=== PATIENT | male | born 1940 | race Caucasian/White ===

== ENCOUNTER 2016-09-19 15:42 | Outpatient (CLI) | payer MEDICARE | END 2016-09-19 15:43 | disposition home or self-care (01) | LOC: NC 15:42 | PROVIDERS: ATTEND Family Medicine | DX: E11.9 Type 2 diabetes mellitus without complications (principal); G20 Parkinson's disease; Z71.3 Dietary counseling and surveillance; Z68.23 Body mass index [BMI] 23.0-23.9, adult ==

== ENCOUNTER 2016-09-25 16:12 | Outpatient (CLI) | payer MEDICARE | END 2016-09-25 16:13 | disposition home or self-care (01) | LOC: NC 16:12 | PROVIDERS: ATTEND Family Medicine | DX: E11.9 Type 2 diabetes mellitus without complications (principal); Z71.3 Dietary counseling and surveillance; Z79.4 Long term (current) use of insulin ==

== ENCOUNTER 2016-10-09 21:49 | Observation (INO) | payer MEDICARE ==
[2016-10-09 22:08] LABS: BASO # 0.1 K/mm3 (0.0-0.2); BASO % 0.6 % (0.2-1.0); HEMOGLOBIN 11.6 gm/l (14.0-18.0); MEAN CELL VOLUME 99.7 fl (80.0-94.0); MEAN PLATELET VOLUME 8.7 fl (7.4-10.4)
[2016-10-09 22:13] LABS: ABSOLUTE NEUTROPHIL COUNT 3.8 K/mm3 (1.8-7.7); EOS # 1.8 (0.0-0.5); EOS % 22.8 % (0.9-2.9); IMM NEUT% 0.3 % (0-1); LYMPH # 1.6 (1.0-4.8); LYMPH % 21.1 % (15-45); MEAN CORPUSCULAR HGB CONC 34.1 g/dl (33.0-37.0); MONO # 0.5 (0.0-0.8); MONO % 6.8 % (4-12); NEUT % 48.4 % (43-75); PLATELET COUNT 383 K/mm3 (130-400); RED CELL DISTRIBUTION WIDTH 11.9 % (11.5-14.5)
[2016-10-09 22:48] LABS: ALB/GLOB RATIO 1.4 (>1.0); ALBUMIN 4.1 gm/dL (3.5-5.7); BLOOD UREA NITROGEN 34 mg/dL (7-25); BUN/CREATININE RATIO 31 (6-20); CALCIUM 9.4 mg/dL (8.6-10.3); GLOMERULAR FILTRATION RATE 66 mL/min (60-75)
[2016-10-09 22:56] LABS: ALT/SGPT < 5 U/L (7-52)
[2016-10-09 23:11] LABS: BAND 0 % (0-10); BASOPHIL 1 % (0-1); EOSINOPHIL 21 % (1-3); LYMPHOCYTE 31 % (15-45); MONOCYTE 6 % (4-12); NEUTROPHILS 41 % (43-75); TOTAL CELLS COUNTED 100
[2016-10-09 23:12] LABS: PLATELET ESTIMATE NORMAL (NORMAL)
[2016-10-09 23:51] LABS: URINE BILIRUBIN NEGATIVE (NEGATIVE); URINE BLOOD 4+ (NEGATIVE); URINE GLUCOSE (UA) 2+ (NEGATIVE); URINE LEUKOCYTE ESTERASE NEGATIVE (NEGATIVE); URINE NITRITE NEGATIVE (NEGATIVE); URINE PROTEIN 1+ (NEGATIVE); URINE UROBILINOGEN NORMAL (0-1 mg/dl)
[2016-10-09 23:57] LABS: URINE APPEARANCE HAZY; URINE COLOR DARK YELLOW
[2016-10-09 23:58] LABS: URINE BACTERIA 0; URINE EPITHELIAL CELLS FEW /hpf; URINE RBC >100 /hpf; URINE WBC 0-1 /hpf
[2016-10-10] MEDS ORDERED: MAGNESIUM HYDROXIDE 30 ML UDCUP PO PRN (00:39)
[2016-10-10] MEDS ORDERED: BISACODYL 5 MG TABLET.EC PO PRN (00:39)
[2016-10-10] MEDS ORDERED: BLISTEX LIPSTICK 1 EACH TP PRN (00:39)
[2016-10-10] MEDS ORDERED: SODIUM CHLORIDE 0.9% 100 ML IV PRN (00:39)
[2016-10-10] MEDS ORDERED: ACETAMINOPHEN 325 MG TABLET PO PRN (00:39)
[2016-10-10] MEDS ORDERED: BISACODYL 10 MG SUP PR PRN (00:39)
[2016-10-10] MEDS ORDERED: MENTHOL/CETYLPYRD 1 EACH LOZENGE PO PRN (00:39)
[2016-10-10 06:01] LABS: ABSOLUTE NEUTROPHIL COUNT 9.2 K/mm3 (1.8-7.7); BASO # 0.1 K/mm3 (0.0-0.2); BASO % 0.4 % (0.2-1.0); EOS # 0.5 (0.0-0.5); EOS % 4.4 % (0.9-2.9); HEMATOCRIT 31.6 % (32.0-52.0); HEMOGLOBIN 10.6 gm/l (14.0-18.0); IMM NEUT% 0.4 % (0-1); LYMPH # 0.7 (1.0-4.8); LYMPH % 6.2 % (15-45); MEAN CELL VOLUME 101.9 fl (80.0-94.0); MEAN CORPUSCULAR HEMOGLOBIN 34.2 pg (27.0-31.0); MEAN CORPUSCULAR HGB CONC 33.5 g/dl (33.0-37.0); MEAN PLATELET VOLUME 8.7 fl (7.4-10.4); MONO # 0.8 (0.0-0.8); MONO % 6.8 % (4-12); NEUT % 81.8 % (43-75); PLATELET COUNT 311 K/mm3 (130-400); RED CELL DISTRIBUTION WIDTH 11.9 % (11.5-14.5)
[2016-10-10 06:15] LABS: CALCIUM 8.6 mg/dL (8.6-10.3)
[2016-10-10] MEDS: INSULIN ASPART (DOSE) 100 UNITS/1 ML SUB-Q PRN ×4 (07:17→21:07)
[2016-10-10] MEDS: DOCUSATE SODIUM 100 MG CAPSULE PO SCH ×2 (08:27→21:07)
--- NOTE | 2016-10-10 08:36 | CT ---
Exam: CT head without contrast COMPARISON: None INDICATION: Fell backwards, hitting back of head. Altered level of consciousness. TECHNIQUE: CT examination of the head was obtained without contrast. FINDINGS: Deep brain stimulators are appreciated. This produces some beam hardening artifact which slightly limits evaluation. Nevertheless, there is no evidence of acute intracranial hemorrhage. There is a panhemispheric subdural collection on the left which has CSF density measuring 7 mm in width. This may reflect a hygroma/chronic subdural hematoma. Although there is no subjacent sulcal effacement, there is approximately 4 mm of [id number] midline shift. Cortical mckeon-white matter differentiation is maintained and there is no mass effect or midline shift. Ventricles are normal in size. There is mild global atrophy. There is no depressed skull fracture. The visualized paranasal sinuses and mastoid air cells are well aerated. IMPRESSION: 1. No acute intracranial abnormality. 2. Left subdural fluid collection, either reflecting a hygroma or chronic subdural hematoma resulting in approximately 4 mm of [id number] midline shift although no significant sulcal effacement is identified. 3. Deep brain stimulators. 4. Mild to moderate global atrophy. Preliminary report transmitted to the emergency department from [facility] at 2239 hours 10/10/2016.
--- NOTE | 2016-10-10 09:03 | CT ---
Exam: CT cervical spine without contrast COMPARISON: Radiograph 11/21/2013 INDICATION: Fall, hitting back of head TECHNIQUE: CT examination cervical spine was obtained without contrast. FINDINGS: Sagittal alignment has not significantly changed since the 2014 and radiographs. There is 2 mm of retrolisthesis of C3 on C4 and minor degenerative retrolisthesis of C5 on C6. Atlantoaxial and atlantooccipital relationships are maintained. There is no prevertebral soft tissue swelling. No acute fracture is identified. There is multilevel degenerative disc disease, most prominent at C5-6 where there is a prominent disc osteophyte complex eccentric to the left which is producing at least mild central spinal canal stenosis and asymmetric narrowing of the left lateral recess. There is also central spinal canal stenosis at C3-4 due to a large disc osteophyte complex and associated retrolisthesis. Central spinal canal stenosis to a lesser degree is also suggested at C6-7. There is multilevel neural foraminal narrowing, most prominent on the left at C5-6 and C6-7 due to uncovertebral osteophytes. Lung apices are clear. Paravertebral soft tissues unremarkable. IMPRESSION: No acute osseous abnormality in the cervical spine. Chronic changes as above, including multilevel central spinal canal stenosis and neural foraminal narrowing. Preliminary report transmitted to the emergency department from [facility] at 2239 hours 10/09/2016.
[2016-10-10] MEDS: CARBIDOPA/LEVODOPA 25/100 1 EACH TABLET PO SCH ×2 (14:48→21:07)
[2016-10-10] MEDS: AMANTADINE HCL 100 MG CAPSULE PO SCH ×2 (16:55→21:06)
--- NOTE | 2016-10-10 17:15 | HP ---
SINGH YOUSSEF [id number] CHIEF COMPLAINT: Fall, with head trauma. HISTORY OF PRESENT ILLNESS: The patient is a 75-year-old male with a past medical history significant for Parkinson's disease and diabetes who had neural implants placed at [facility] for his Parkinson's disease on 10/01/2016. He has been doing well postoperatively. His reports that yesterday he was very active. He was able to feed the chickens and he went for several walks, but after he ate dinner he went to the bathroom and sometime between 8:30 - 9:00 he had a fall and got wedged between the toilet and the wall. She heard the fall and was able to come to his aid immediately. It is unclear if he hit his head. There was no seizure activity. After the fall, however, he was nonverbal for a period of a number of hours. He was evaluated in the emergency department. He had a CT scan of his head. The images were reviewed by neurosurgery at [facility] and he was not felt to have any acute injury, however, he remained unsteady on his feet in the emergency department and there were concerns about ongoing risk of repeated falls, so he was referred to the Hospitalist Service for observation. He did regain his ability to speak, but was only answering questions with a single word while in the emergency department. He did have some hyperglycemia, but no significant electrolyte or laboratory abnormalities. REVIEW OF SYSTEMS: He is not really able to provide a good review of systems, but his reports that he has had no fevers or chills and no upper respiratory symptoms. No cough, dyspnea or wheezing. No complaints of chest pain, shortness of breath or palpitations. No edema. No nausea or vomiting. No headaches, fainting, blackouts or seizures. No abdominal pain. No diarrhea or constipation. He has had no urinary symptoms. PAST MEDICAL HISTORY: Significant for: 1. Adult-onset diabetes. He has been on insulin for many years. He has had the diabetes for about ten years. 2. He has had Parkinson's disease for over five years. 3. He has had some erectile dysfunction. 4. He has had some cervical disk disease. 5. He never had any cardiac problems or any chronic lung disease. 6. He has not had any recent hospitalizations, except for the surgical procedure at [facility]. PAST SURGICAL HISTORY: Significant for: 1. The neural implants done on 10/01/[address] Maki. 2. He did have a bilateral hernia repair in 1994. 3. No other surgeries. ALLERGIES: No known drug allergies. CURRENT MEDICATIONS: Consist of: 1. Lisinopril 10 mg daily. 2. Amantadine 100 mg four times daily. 3. Simvastatin 40 mg at bedtime. 4. Lispro insulin, using a correction scale before breakfast, lunch and dinner, but not at bedtime. 5. Lantus 16 units sub-Q at bedtime. 6. Metformin 1,000 mg twice daily. 7. Sinemet 25/100 two pills 3 times daily. FAMILY HISTORY: Significant for a familial tremor, but no history of Parkinson's. His mother had hypertension and a maternal grandmother had diabetes. SOCIAL HISTORY: He is a lifelong nonsmoker. He occasionally drinks alcohol. He is not using any assistive devices at home. He lives with his . His primary care provider is Dr. Slade. PHYSICAL EXAMINATION: VITAL SIGNS: Temperature 99.0. Pulse 95. Blood pressure 139/72. Respirations 20. Oxygen saturation is 97% on room air. His body mass index is 23.6 and weight is 72.6 kilograms. GENERAL: This is a well-developed and well-nourished male in no acute distress. HEENT: Pupils equal, round and reactive to light. Extraocular movements are intact. No oral lesions are present. NECK: Supple, without lymphadenopathy or thyromegaly. LUNGS: Clear to auscultation bilaterally. CARDIOVASCULAR: Reveals a regular rate and rhythm, without a murmur. ABDOMEN: Soft, nontender and nondistended, with positive bowel sounds. EXTREMITIES: Show no peripheral edema. SKIN: Warm and dry. His incisions over the scalp in the frontal area are healing well. There is no erythema, discharge or fluctuance. NEUROLOGIC: Significant for him being alert. He is not oriented to place or time. He is oriented to person. He thought the month was September and the year was 1916, but on reorientation he seems to be retaining this information correctly. He is not very loquacious, but does answer questions appropriately, and has been able to get out of bed to the bathroom with standby assist. DIAGNOSTIC IMAGING STUDIES: 1. Included a CT of the brain, which showed a possible left subdural fluid collection, either CSF or a subdural hematoma, measuring about 4 mm, with a left and right midline shift, without focal effacement. There is no acute intracranial abnormality. There are deep brain stimulators seen and mild to moderate atrophy. 2. A cervical spine CT shows some chronic degenerative changes, but no acute fractures or findings. LABORATORY STUDIES: Initially his CBC showed a white count of 7.8, hemoglobin 11.6 and platelet count of 383,000, with 41% neutrophils, 0% bands, 31% lymphocytes, 6% monocytes and 21% eosinophils. A follow-up CBC done today shows an eosinophil percentage of 4% and no left shift. White count is borderline at 11.2. Hemoglobin is down to 10.6, probably from IV fluids. Chemistry profile initially showed a sodium of 136, potassium 3.6, BUN of 34, creatinine 1.1 and glucose 208. On follow-up today his sodium is 131 and potassium 4.1, with a BUN of 30 and creatinine of 1.0. Glucose was 364. Urinalysis shows a specific gravity of 1.020. A catheterized specimen had 4+ blood and over 100 red cells per high-powered field, but 0-1 white cells and zero bacteria; suspect this is caused by catheter trauma. ASSESSMENT: 1. The patient has a ground-level fall, with some acute encephalopathy, unclear etiology. He does have an abnormal CT, possibly consistent with a subdural hematoma, possibly just a CSF collection. 2. He has Parkinson's disease, with some high-risk medications complicating the picture. 3. Adult-onset diabetes, with hyperglycemia. 4. Cervical disk disease. PLAN: He is placed under observation initially. I will review his InterQual criteria to see if he meets criteria for admission. I do anticipate he will be staying another night and anticipate continuing neuro checks every four hours and getting PT and OT to evaluate and treat the patient during his stay. I expect he will probably go home after 48 hours. I will use mechanical measures only for VTE prophylaxis due to the concern for a possible subdural hematoma. I am going to continue his Lisinopril, which I presume is being prescribed for renal protective effects, and he will have further treatment and therapies as indicated by his hospital course. I personally reviewed the CT scans with the neurosurgeon that performed the implants as well as the plan of care. Consider repeat CT if change in neurologic condition. Family to schedule follow up with surgeon next week. cc: Dr. Reji Slade
[2016-10-10] MEDS ORDERED: SIMVASTATIN 40 MG TABLET PO SCH (21:00)
[2016-10-10] MEDS ORDERED: INSULIN GLARGINE (DOSE) 100 UNITS/ML UNIT SUB-Q SCH (21:00)
[2016-10-10] MEDS: METFORMIN HCL 500 MG TABLET PO SCH (21:07)
[2016-10-11 06:44] LABS: ABSOLUTE NEUTROPHIL COUNT 4.5 K/mm3 (1.8-7.7); BASO % 0.5 % (0.2-1.0); EOS # 1.3 (0.0-0.5); EOS % 15.6 % (0.9-2.9); HEMATOCRIT 32.3 % (32.0-52.0); HEMOGLOBIN 11.2 gm/l (14.0-18.0); IMM NEUT% 0.2 % (0-1); LYMPH # 1.5 (1.0-4.8); LYMPH % 18.4 % (15-45); MEAN CELL VOLUME 98.2 fl (80.0-94.0); MEAN CORPUSCULAR HGB CONC 34.7 g/dl (33.0-37.0); MEAN PLATELET VOLUME 8.9 fl (7.4-10.4); MONO # 0.9 (0.0-0.8); MONO % 10.5 % (4-12); NEUT % 54.8 % (43-75); PLATELET COUNT 355 K/mm3 (130-400); RED CELL DISTRIBUTION WIDTH 11.9 % (11.5-14.5)
[2016-10-11 08:09] VITALS: BP 118/63
[2016-10-11] MEDS ORDERED: LISINOPRIL 10 MG TABLET PO SCH (09:00)
[2016-10-11] MEDS: DOCUSATE SODIUM 100 MG CAPSULE PO SCH (09:09)
[2016-10-11] MEDS: METFORMIN HCL 500 MG TABLET PO SCH (09:09)
[2016-10-11] MEDS: AMANTADINE HCL 100 MG CAPSULE PO SCH (09:09)
[2016-10-11] MEDS: CARBIDOPA/LEVODOPA 25/100 1 EACH TABLET PO SCH (09:09)
[2016-10-11] MEDS: INSULIN ASPART (DOSE) 100 UNITS/1 ML SUB-Q PRN (09:16)
--- NOTE | 2016-10-11 10:33 | PDOC43 ---
- Subjective Chief Complaint: fall, AMS pt is at baseline MS. he is feeling well. no c/o this am. wants to go home. is also in agreement with plan for DC Subjective: Reports Pain Tolerable, Reports Tolerating Diet Well, Reports Adequate Oral Intake, Reports Bowel Movement, Reports Urinating Without Difficulty, Denies Shortness of Breath, Denies Cough, Denies Chest Pain, Denies Abdominal Pain, Denies Nausea, Denies Vomiting, Denies Fever, Denies Chills - Objective Vital Signs Temperature 98.3 F 10/11/16 08:00 Pulse Rate 65 10/11/16 08:00 Respiratory Rate 18 10/11/16 08:00 Blood Pressure 118/63 10/11/16 08:00 O2 Saturation by Pulse Oximetry 99 10/11/16 08:00 Oxygen Delivery Method Room Air Oxygen Flow Rate 0 Intake and Output 10/09/16 10/10/16 10/11/16 23:59 23:59 23:59 Intake Total 640 450 Output Total 1089 3 Balance -449 447 General: Alert, Oriented x3, Cooperative, No Acute Distress HEENT: Atraumatic, Mucous membr. moist/pink Lungs: Clear to Auscultation Bilaterally, Normal Air Movement Cardiovascular: Regular Rate and Rhythm, Normal S1, Normal S2, No Murmur, No Gallops, No Rubs Abdomen: Soft, Normal Bowel Sounds, Non-Distended, No Tenderness Extremities: No Cyanosis Skin: Warm, Dry, Intact Wound: No Drainage, No Erythema, No Rash Neurological: Normal Speech Psych/Mental Status: Normal Affect, Normal Mood Laboratory 10/11/16 05:46 10/10/16 05:30 10/11/16 10/11/16 10/10/16 08:57 05:46 20:44 RBC 3.29 L MCV 98.2 H MCH 34.0 H POC Capillary Glucose 158 H 317 H 10/10/16 10/10/16 15:55 11:08 RBC MCV MCH POC Capillary Glucose 283 H 210 H Current Medications: Current meds reviewed in EMR. 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 resume home meds one home. (2) Parkinson disease Status: ChronicAssessment/Plan: with recent neurostimulator implant. likely was reason for fall. unclear if AMS was form fall or other source, but cleared CT scan reviewed with his neurosurgeon who was not concerned. f/u as OP (3) Cervical disc disease Status: ChronicAssessment/Plan: no flare since fall. monitor (4) Fall from ground level Status: AcuteAssessment/Plan: AMS after fall, however unclear cause. now at MS baseline. moving well now and able to provide care for him. VTE Prophylaxis: NA Disposition: to home today
--- NOTE | 2016-10-11 16:22 | DS ---
SINGH YOUSSEF [id number] : 1940 DATE OF ADMISSION: October 10, 2016 DATE OF DISCHARGE: October 11, 2016 ADMIT DIAGNOSES: 1. Ground level fall. 2. Parkinson's disease. 3. Acute mental status changes. 4. Cervical disc disease. 5. Diabetes type 2. DISCHARGE DIAGNOSES: 1. Ground level fall. 2. Parkinson's disease. 3. Acute mental status changes. 4. Cervical disc disease. 5. Diabetes type 2. PROCEDURES/IMAGING: A CT scan was performed in the emergency room on October 09, 2016 showing a possible hematoma or fluid collection though in review with his neurosurgeon, his neurosurgeon was not concerned. HISTORY AND PHYSICAL: Please see History and Physical dictated, job number [id number]. In short, this is a 78-year-old male with a history of significant Parkinson's disease and diabetes who had neuro implants placed at [facility] on October 01, 2016. He had been doing well postoperatively but had a ground level fall in the evening of October 09, 2016 admitted for observation due to his mental status changes. HOSPITAL COURSE: Hospital course by problems as follows: 1. Ground level fall and mental status changes. Patient had one fall which was at home with some mental status changes afterward. He did have a return to baseline mental status shortly after referral to observation and moving to the medical floor and has been doing well since he has not had any changes from his mental status. CT scan was performed in the emergency department showing possible left subdural fluid collection either CSF or a subdural hematoma. However, this was reviewed with his neurosurgeon secondary to the fact that he had just recently had neurostimulator placed, and his neurosurgeon was not impressed and did not feel there was an acute issue. As the patient was returning to baseline he was discharged to home and instructed to follow up as an outpatient or return if there was any new issue. 2. Parkinson's. Patient recently had a neurostimulator placed. 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 He was able to return to his baseline of functionality prior to discharge. 3. Diabetes. Patient does have adult onset diabetes with some hyperglycemia. His sugars were reasonably well controlled throughout his hospital stay. He is instructed to return to his normal home insulin at time of discharge. 4. Cervical disc disease. Patient does have a history of chronic cervical disc disease with neck pain. However, after his fall he has not been complaining of any issues. He does not have any pain at this time and thus it does not appear that there is any flare up of this issue. DISCHARGE MEDICATIONS: The patient was discharged with instructions to resume his home medications of: 1. Lisinopril 10 mg daily. 2. Amantadine 100 mg orally four times daily. 3. Simvastatin 40 mg orally at bedtime. 4. Lispro insulin with a sliding scale. 5. Lantus 16 units subcutaneous at bedtime. 6. Metformin 1000 mg orally twice daily. 7. Sinemet 25/100 two pills three times daily. ACTIVITY: Ad poncho up with assist. DIET: Diabetic. FOLLOW UP: The patient is to follow up with Emily Leyva on October 14, 2016 at 1:00 ;.m. CONDITION: Stable. DISPOSITION: To home. Cc: Emily Leyva PA-C
== END 2016-10-11 11:30 | disposition home or self-care (01) ==
LOC: ED 21:49 → MS 23:31
PROVIDERS: ADMIT Family Medicine; ATTEND Family Medicine
DX: S06.5X0A Traumatic subdural hemorrhage without loss of consciousness, initial encounter (principal); G20 Parkinson's disease; M50.30 Other cervical disc degeneration, unspecified cervical region; W19.XXXA Unspecified fall, initial encounter; Y92.009 Unspecified place in unspecified non-institutional (private) residence as the place of occurrence of the external cause; Z79.4 Long term (current) use of insulin; E11.65 Type 2 diabetes mellitus with hyperglycemia

== ENCOUNTER 2016-10-12 19:24 | Emergency (ER) | payer MEDICARE ==
[2016-10-12 20:38] LABS: BASO % 0.5 % (0.2-1.0); EOS % 20.4 % (0.9-2.9)
[2016-10-12 20:38] LABS: SPECIFIC GRAVITY 1.025 (1.001-1.030); URINE BILIRUBIN NEGATIVE (NEGATIVE); URINE BLOOD NEGATIVE (NEGATIVE); URINE GLUCOSE (UA) 2+ (NEGATIVE); URINE LEUKOCYTE ESTERASE NEGATIVE (NEGATIVE); URINE NITRITE NEGATIVE (NEGATIVE); URINE PROTEIN NEGATIVE (NEGATIVE); URINE UROBILINOGEN NORMAL (0-1 mg/dl)
[2016-10-12 20:40] LABS: URINE APPEARANCE CLEAR; URINE COLOR YELLOW
[2016-10-12 20:51] LABS: ABSOLUTE NEUTROPHIL COUNT 4.6 K/mm3 (1.8-7.7); EOS # 1.7 (0.0-0.5); HEMATOCRIT 36.1 % (32.0-52.0); IMM NEUT% 0.4 % (0-1); LYMPH # 1.3 (1.0-4.8); LYMPH % 16.1 % (15-45); MEAN CELL VOLUME 102.6 fl (80.0-94.0); MEAN CORPUSCULAR HEMOGLOBIN 34.1 pg (27.0-31.0); MEAN CORPUSCULAR HGB CONC 33.2 g/dl (33.0-37.0); MEAN PLATELET VOLUME 9.2 fl (7.4-10.4); MONO # 0.5 (0.0-0.8); MONO % 6.2 % (4-12); NEUT % 56.4 % (43-75); PLATELET COUNT 422 K/mm3 (130-400); RED CELL DISTRIBUTION WIDTH 12.5 % (11.5-14.5)
[2016-10-12 21:07] LABS: ALB/GLOB RATIO 1.3 (>1.0); ALBUMIN 3.9 gm/dL (3.5-5.7); ALT/SGPT < 5 U/L (7-52); BLOOD UREA NITROGEN 30 mg/dL (7-25); BUN/CREATININE RATIO 30 (6-20); CALCIUM 9.3 mg/dL (8.6-10.3); GLOMERULAR FILTRATION RATE 73 mL/min (60-75); MAGNESIUM 1.6 mg/dL (1.9-2.7)
--- NOTE | 2016-10-12 21:08 | CT ---
Name: SINGH YOUSSEF Exam: CT head without contrast Comparison: 10/09/2016 Clinical history: Possible seizure Technique: Helical CT was performed through the head. Angled axial reconstructions were obtained. Sagittal and coronal reconstructions were obtained as well. No contrast was given. An automated dose reduction technique was used to minimize patient radiation dose. Findings: There is stable left to right shift of midline structures by 4 mm. Atrophy and chronic small vessel ischemic changes present. There is an extra-axial fluid collection primarily in the left frontal region which measures approximately 7 mm in greatest thickness which is unchanged from the prior. New hemorrhage within this old hygroma/subdural hematoma is not present. Significant underlying mass effect upon the gyri and sulci is not appreciated. There is no new suspicious fluid collection. Cisterns are uneffaced. There are deep neurostimulator leads from a bifrontal approach which are in stable position. Cisterns are uneffaced. Posterior fossa is unremarkable. Visualized paranasal sinuses and mastoid air cells are normal. Vascular calcifications are identified. Impression: 1. No acute process 2. Diffuse primarily left frontal old subdural hematoma/hygroma resulting in 4 mm of [id number]-[id number] shift of midline structures. There is no new hemorrhage and no change from the prior. 3. Stable position of deep brain stimulating leads from a bifrontal approach 4. Atherosclerosis 5. No change from 10/09/2016 Note: The above report was uploaded to [facility]'s electronic medical records system at 2101 hours.
[2016-10-12 21:21] LABS: ATYPICAL LYMPHOCYTE 3 %; BAND 0 % (0-10); BASOPHIL 0 % (0-1); EOSINOPHIL 22 % (1-3); LYMPHOCYTE 9 % (15-45); MONOCYTE 6 % (4-12); NEUTROPHILS 60 % (43-75); TOTAL CELLS COUNTED 100
[2016-10-12 21:22] LABS: PLATELET ESTIMATE NORMAL (NORMAL)
[2016-10-12] MEDS ORDERED: MAGNESIUM SULFATE 2 G/50 ML 50 ML IV ONE (21:30)
== END 2016-10-12 22:17 | disposition home or self-care (01) ==
LOC: ED 19:24
DX: R56.9 Unspecified convulsions (principal); I10 Essential (primary) hypertension; E11.9 Type 2 diabetes mellitus without complications; Z79.4 Long term (current) use of insulin; G20 Parkinson's disease
CPT/HCPCS: 85025; 80053; 83735; 81003; 84484; 70450; 99284 ×2; 96365; J3475